=== PATIENT | female | born 2000 | race Caucasian/White ===

== ENCOUNTER 2024-04-11 08:24 | Outpatient (CLI) | payer OTHER, SELFPAY | END 2024-04-11 08:25 | disposition home or self-care (01) | PROVIDERS: PCP Physician Assistant Medical; Visit Provider Physician Assistant Medical | DX: F25.9 Schizoaffective disorder, unspecified (principal); F31.81 Bipolar II disorder; F32.A Depression, unspecified; F41.1 Generalized anxiety disorder; F41.9 Anxiety disorder, unspecified; F60.3 Borderline personality disorder | CPT/HCPCS: 80306 ==

== ENCOUNTER 2024-11-07 12:01 | Outpatient (CLI) | payer OTHER, SELFPAY | END 2024-11-07 12:02 | disposition home or self-care (01) | PROVIDERS: PCP Physician Assistant Medical; Visit Provider Physician Assistant Medical | DX: F32.A Depression, unspecified (principal); Z11.3 Encounter for screening for infections with a predominantly sexual mode of transmission; Z11.59 Encounter for screening for other viral diseases; Z13.6 Encounter for screening for cardiovascular disorders; Z13.0 Encounter for screening for diseases of the blood and blood-forming organs and certain disorders involving the immune mechanism | CPT/HCPCS: 80061; 82306; 84443; 86703; 86803 ==